=== PATIENT | male | born 1985 | race Caucasian/White ===

== ENCOUNTER 2016-12-20 18:43 | Emergency (ER) | payer BC ==
[~2016-12-20] VITALS: Ht 190.5 cm; Wt 95.3 kg
--- NOTE | 2016-12-20 18:53 | NUR ---
PT WALKED INTO ER C/O EPIGASTRIC BURNING, PT IS ALERT, ORIENTED X 4, NO RESP DISTRESS NOTED OR REPORTED UPON ASSESSMENT... MD AT BEDSIDE..
[2016-12-20 20:03] LABS: BASOPHILS % (AUTO) 0.5 % (0.0-2.0); EOSINOPHILS # (AUTO) 0.1 K/uL (0.0-0.7); EOSINOPHILS % (AUTO) 1.3 % (0.0-7.0); HEMOGLOBIN 14.6 G/DL (14.0-18.0); LYMPHOCYTES # (AUTO) 2.2 K/UL (0.8-4.8); LYMPHOCYTES % (AUTO) 22.4 % (20.5-51.5); MEAN CORPUSCULAR HEMOGLOBIN 27.5 UUG (27.0-31.0); MEAN CORPUSCULAR HGB CONC 33 g/dL (32.0-37.0); MEAN CORPUSCULAR VOLUME 82.8 FL (82.0-92.0); MONOCYTES # (AUTO) 0.5 K/UL (0.1-1.30); MONOCYTES % (AUTO) 5.6 % (0.0-11.0); NEUTROPHILS % (AUTO) 70.2 % (38.5-71.5); PLATELET COUNT (AUTO) 268 K/UL (150-450); RED BLOOD CELL COUNT(AUTO) 5.31 MIL/UL (4.7-6.1); WHITE BLOOD COUNT (AUTO) 9.8 K/UL (4.0-11.2)
[2016-12-20 20:12] LABS: CARBON DIOXIDE 30 mmol/L (21-32); CHLORIDE 101 mmol/L (98-107); CREATININE 1.3 mg/dL (0.6-1.3); GLUCOSE 94 mg/dL (74-106); POTASSIUM 4.5 mmol/L (3.5-5.1); UREA NITROGEN, BLOOD 19 mg/dL (7-18)
[2016-12-20 20:25] LABS: ALANINE AMINOTRANSFERASE 65 U/L (16-63); ALKALINE PHOSPHATASE 69 U/L (50-136); ASPARTATE AMINOTRANSFERASE 24 U/L (15-37); BILIRUBIN,DIRECT 0.1 mg/dL (0.0-0.2); BILIRUBIN,TOTAL 0.4 mg/dL (0.2-1.0); TOTAL PROTEIN, SERUM 8.6 g/dL (6.4-8.2)
[2016-12-20] MEDS ORDERED: MAG HYDROX/AL HYDROX/SIMETH 30 ML LIQUID UDC PO ONE (22:15)
[2016-12-20] MEDS ORDERED: MAG HYDROX/AL HYDROX/SIMETH 30 ML LIQUID UDC ONE (22:25)
--- NOTE | 2016-12-20 23:58 | NUR ---
Patient discharged to home in stable conditon. Written and verbal after care instructions given. Patient verbalizes understanding of instructions. Pt walked out of ER unassisted with belongings at side...
[2016-12-21] VITALS: BP 129/92
== END 2016-12-21 00:01 | disposition home or self-care (01) ==
LOC: ER 18:45
DX: R07.89 Other chest pain (principal); F17.200 Nicotine dependence, unspecified, uncomplicated
CPT/HCPCS: 36415; 70030-TC; 71010; 85025; 85730; 93005; A4663

== ENCOUNTER 2018-04-30 17:39 | Emergency (ER) | payer BC, OTHER ==
[~2018-04-30] VITALS: Ht 190.5 cm; Wt 105.2 kg
[2018-04-30] MEDS ORDERED: DEXL60CA3 PO (17:49)
[2018-04-30 18:54] LABS: BASOPHILS % (AUTO) 0.9 % (0.0-2.0); EOSINOPHILS # (AUTO) 0.2 K/uL (0.0-0.7); EOSINOPHILS % (AUTO) 3.3 % (0.0-7.0); HEMATOCRIT 41.7 % (36.7-47.1); HEMOGLOBIN 14.1 g/dL (12.5-16.3); LYMPHOCYTES # (AUTO) 1.7 K/uL (20.0-40.0); LYMPHOCYTES % (AUTO) 33.3 % (20.5-51.5); MEAN CORPUSCULAR HEMOGLOBIN 28.8 uug (23.8-33.4); MEAN CORPUSCULAR HGB CONC 34 g/dL (32.5-36.3); MONOCYTES # (AUTO) 0.4 K/uL (2.0-10.0); MONOCYTES % (AUTO) 8.8 % (0.0-11.0); NEUTROPHILS # (AUTO) 2.7 K/uL (1.8-8.9); NEUTROPHILS % (AUTO) 53.7 % (38.5-71.5); PLATELET COUNT (AUTO) 237 K/uL (152-348); RED BLOOD CELL COUNT(AUTO) 4.91 MIL/uL (4.06-5.63)
[2018-04-30 19:03] LABS: CREATININE 1.2 mg/dL (0.6-1.3); POTASSIUM 3.9 mmol/L (3.5-5.1)
--- NOTE | 2018-04-30 19:33 | NUR ---
Patient discharged to home in stable conditon. Written and verbal after care instructions given. Patient verbalizes understanding of instructions.
[2018-04-30 19:34] VITALS: BP 124/91
== END 2018-04-30 19:35 | disposition home or self-care (01) ==
LOC: ER 17:42
DX: J40 Bronchitis, not specified as acute or chronic (principal); F17.200 Nicotine dependence, unspecified, uncomplicated
CPT/HCPCS: 36415; 70030-TC; 71045; 85025; 85730; 93005; A4663

== ENCOUNTER 2019-03-31 20:22 | Emergency (ER) | payer OTHER ==
[~2019-03-31] VITALS: Ht 190.5 cm; Wt 93.0 kg
[~2019-03-31 20:22] MED LIST: DEXL60CA3 PO
--- NOTE | 2019-03-31 20:33 | NUR ---
Patient ambulated with stable gait. A/Ox4. Speech is clear, is able to speak in complete sentences. Respiratory even and unlabored, no sob but has cough. Patient came for c/o sore throat for 2-3 days, and c/o tightness with minor difficulty swallowing.
--- NOTE | 2019-03-31 20:35 | NUR ---
ERMD at bedside for MSE
[2019-03-31 20:57] LABS: BASOPHILS # (AUTO) 0.1 K/uL (0.0-8.0); BASOPHILS % (AUTO) 0.7 % (0.0-2.0); EOSINOPHILS # (AUTO) 0.1 K/uL (0.0-0.7); EOSINOPHILS % (AUTO) 1.4 % (0.0-7.0); HEMATOCRIT 41.9 % (36.7-47.1); HEMOGLOBIN 13.9 g/dL (12.5-16.3); LYMPHOCYTES # (AUTO) 2.3 K/uL (20.0-40.0); LYMPHOCYTES % (AUTO) 30.9 % (20.5-51.5); MEAN CORPUSCULAR HGB CONC 33 g/dL (32.5-36.3); MEAN CORPUSCULAR VOLUME 84.6 fL (73.0-96.2); MONOCYTES # (AUTO) 0.4 K/uL (2.0-10.0); MONOCYTES % (AUTO) 5.6 % (0.0-11.0); NEUTROPHILS # (AUTO) 4.6 K/uL (1.8-8.9); NEUTROPHILS % (AUTO) 61.4 % (38.5-71.5); PLATELET COUNT (AUTO) 307 K/uL (152-348); RED BLOOD CELL COUNT(AUTO) 4.95 MIL/uL (4.06-5.63); WHITE BLOOD COUNT (AUTO) 7.5 K/uL (3.6-10.2)
[2019-03-31 21:10] LABS: BILIRUBIN,TOTAL 0.3 mg/dL (0.2-1.0); POTASSIUM 3.9 mmol/L (3.5-5.1); TOTAL PROTEIN, SERUM 8.1 g/dL (6.4-8.2)
[2019-03-31 21:18] LABS: THYROID STIMULATING HORMONE 1.533 mIU/mL (0.358-3.740)
[2019-03-31 22:00] VITALS: BP 18/83
--- NOTE | 2019-03-31 22:00 | NUR ---
Patient discharged to home in stable conditon. Written and verbal after care instructions given. Patient verbalizes understanding of instructions. Patient ambulated with stable gait.
== END 2019-03-31 22:01 | disposition home or self-care (01) ==
LOC: ER 20:22
DX: I88.9 Nonspecific lymphadenitis, unspecified (principal); F17.200 Nicotine dependence, unspecified, uncomplicated; Z79.899 Other long term (current) drug therapy
CPT/HCPCS: 36415; 70360; 84443; 85025; 86403; 87070; A4663

== ENCOUNTER 2019-04-20 11:53 | Emergency (ER) | payer OTHER ==
[~2019-04-20] VITALS: Ht 190.5 cm; Wt 92.1 kg
--- NOTE | 2019-04-20 12:40 | NUR ---
PATIENT WAS MSE BY DR GARCIA IN ROOM 05A. PATIENT A & O X3
--- NOTE | 2019-04-20 13:11 | NUR ---
Patient discharged to home in stable conditon. Written and verbal after care instructions given. Patient verbalizes understanding of instructions. No c/o pain . No c/o any dizziness. Normal steady gait.
[2019-04-20 13:13] VITALS: BP 119/68
== END 2019-04-20 13:14 | disposition home or self-care (01) ==
LOC: ER 11:53
DX: H61.23 Impacted cerumen, bilateral (principal); F17.200 Nicotine dependence, unspecified, uncomplicated; Z79.899 Other long term (current) drug therapy
CPT/HCPCS: A4663

== ENCOUNTER 2019-06-27 19:50 | Emergency (ER) | payer OTHER ==
[~2019-06-27] VITALS: Ht 190.5 cm; Wt 95.3 kg
[2019-06-27] MEDS ORDERED: OMEP20CA15 PO (20:01)
--- NOTE | 2019-06-27 20:05 | NUR ---
Dr. Linda at bedside for MSE.
[2019-06-27] MEDS ORDERED: ONDANSETRON ODT 4 MG TAB.RAPDIS SL ONE (20:15)
[2019-06-27] MEDS ORDERED: HYDROCODONE/APAP 10-325 MG TABLET PO ONE (20:15)
[2019-06-27] MEDS ORDERED: ONDANSETRON ODT 4 MG TAB.RAPDIS ONE (20:19)
[2019-06-27] MEDS ORDERED: HYDROCODONE/APAP 10-325 MG TABLET ONE (20:20)
--- NOTE | 2019-06-27 20:38 | NUR ---
Pt out of ER for CT.
--- NOTE | 2019-06-27 20:47 | NUR ---
Pt back to ER from CT.
--- NOTE | 2019-06-27 21:36 | NUR ---
Patient discharged to home in stable conditon. Written and verbal after care instructions given. Patient verbalizes understanding of instructions. Pt ambulated out of ER with steady gait, no acute signs of distress, VSS, all belongings taken.
[2019-06-27 21:37] VITALS: BP 134/80
== END 2019-06-27 21:37 | disposition home or self-care (01) ==
LOC: ER 19:52
DX: R51 Headache (principal); K21.9 Gastro-esophageal reflux disease without esophagitis; F17.290 Nicotine dependence, other tobacco product, uncomplicated; Z71.6 Tobacco abuse counseling; Z79.899 Other long term (current) drug therapy
CPT/HCPCS: 70450; A4663; Q0162

== ENCOUNTER 2021-05-06 18:28 | Emergency (ER) | payer BC, OTHER ==
[~2021-05-06] VITALS: Ht 190.5 cm; Wt 108.9 kg
[~2021-05-06 18:28] MED LIST changes: -DEXL60CA3 PO; +OMEP20CA15 PO
--- NOTE | 2021-05-06 20:00 | NUR ---
Patient waiting in car due to no beds available in the ER. Patient with no distress at this time.
--- NOTE | 2021-05-06 22:45 | NUR ---
Patient just placed in room 3 due to no beds available in the ER. DR Linda into eval patient.
--- NOTE | 2021-05-06 22:48 | NUR ---
Patient arrived at the ER with complain of chest discomfort and SOB. Was swab for COVID and is positive.
--- NOTE | 2021-05-06 22:50 | NUR ---
Dr. Linda on bedside for MSE.
--- NOTE | 2021-05-06 23:07 | NUR ---
Patient discharged to home in stable condition. Written and verbal after care instructions given. Patient verbalizes understanding of instructions. Stressed follow up or return to ER for worsening s/s. Patient ambulated fr the ER with steady gait. All belongings with patient.
[2021-05-06 23:09] VITALS: BP 125/78
== END 2021-05-06 23:10 | disposition home or self-care (01) ==
LOC: ER 18:34
DX: U07.1 COVID-19 (principal); K21.9 Gastro-esophageal reflux disease without esophagitis; Z79.899 Other long term (current) drug therapy
CPT/HCPCS: 87400; A4663